=== PATIENT | male | born 1980 | race Caucasian/White ===

== ENCOUNTER 2018-07-07 13:34 | Outpatient (REF) | payer BC, SELFPAY | END 2018-07-07 13:54 | LOC: NCHCN 13:34 | PROVIDERS: PCP Family Medicine; Visit Provider Specialist/Technologist Athletic Trainer | DX: J02.9 Acute pharyngitis, unspecified (principal) | CPT/HCPCS: 87070 ==

== ENCOUNTER 2018-12-15 22:01 | Outpatient (REF) | payer BC, SELFPAY ==
[2018-12-15 22:02] LABS: HCT 40.3 % (40.0-50.0); HGB 14.2 g/dL (13.5-17.5); Mean Corp. HGB Concentration 35.2 g/dL (32.0-36.0); Mean Corpuscular Hemoglobin 32.2 pg (27.0-33.0); Mean Corpuscular Volume 91.4 fL (80-95); Mean Platelet Volume 11.2 fL (8.0-11.0); Platelet Count 126 x1000/uL (130-400); RBC 4.41 m/cumm (4.50-6.00); RBC Distribution Width 12.8 % (11.8-14.1); White Blood Cell Count 3.77 k/cumm (4.4-10.8)
[2018-12-15 22:40] LABS: Absolute Neutrophil Count 2.11 k/cumm (1.2-6.7)
[2018-12-15 22:41] LABS: Absolute Basophil Count 0.04 k/cumm (0.0-0.2); Absolute Eosinophil Count 0.11 k/cumm (0.0-0.7); Absolute Lymphocyte Count 0.94 k/cumm (1.2-3.4); Absolute Monocyte Count 0.53 k/cumm (0.11-0.7); Atypical Lymphocytes % 12; Diff Comment Manual Differential; RBC Morphology Normal
[2018-12-17 11:33] LABS: Lyme Ab w Rflx to Lyme Confirm Negative
[2018-12-18 16:47] LABS: Anaplasma phagocytophilum Negative (Negative); B. miyamotoi PCR Negative (Negative); Babesia divergens/MO-1 Negative (Negative); Babesia duncani Negative (Negative); Babesia microti Negative (Negative); Ehrlichia chaffeensis Negative (Negative); Ehrlichia ewingii/canis Negative (Negative); Ehrlichia muris eauclairensis Negative (Negative)
== END 2018-12-15 22:21 ==
LOC: NCHCN 22:01
PROVIDERS: PCP Family Medicine; Visit Provider Physician Assistant Medical
DX: R50.9 Fever, unspecified (principal)
CPT/HCPCS: 87798; 85025; 86618

== ENCOUNTER 2018-12-29 21:27 | Outpatient (REF) | payer BC, SELFPAY ==
[2018-12-29 21:43] LABS: Abs Immature Grans 0.06 k/cumm (0.0-0.09); Absolute Basophil Count 0.03 k/cumm (0.0-0.2); Absolute Eosinophil Count 0.07 k/cumm (0.0-0.7); Absolute Lymphocyte Count 3.15 k/cumm (1.2-3.4); Absolute Monocyte Count 0.73 k/cumm (0.11-0.7); Basophils % 0.5; Eosinophils % 1.2; HCT 37.8 % (40.0-50.0); HGB 13.4 g/dL (13.5-17.5); Immature Grans % 1.1; Lymphocytes % 55.9; Mean Corp. HGB Concentration 35.4 g/dL (32.0-36.0); Mean Corpuscular Hemoglobin 34.3 pg (27.0-33.0); Mean Corpuscular Volume 96.7 fL (80-95); Mean Platelet Volume 10.7 fL (8.0-11.0); Monocytes % 12.9; Neutrophils % 28.4; Platelet Count 238 x1000/uL (130-400); RBC 3.91 m/cumm (4.50-6.00); RBC Distribution Width 13.7 % (11.8-14.1); White Blood Cell Count 5.64 k/cumm (4.4-10.8)
== END 2018-12-29 21:47 ==
LOC: NCHCN 21:27
PROVIDERS: PCP Family Medicine; Visit Provider Physician Assistant Medical
DX: R50.9 Fever, unspecified (principal)
CPT/HCPCS: 85025

== ENCOUNTER 2021-03-23 03:42 | Outpatient (CLI) | payer BC, SELFPAY ==
[2021-03-23 12:56] LABS: Abs Immature Grans 0.13 10^3/uL (0.0-0.06); Absolute Basophil Count 0.05 10^3/uL (0.0-0.2); Absolute Eosinophil Count 0.34 10^3/uL (0.0-0.7); Absolute Lymphocyte Count 2.24 10^3/uL (1.2-3.4); Absolute Monocyte Count 0.43 10^3/uL (0.1-0.8); Absolute Neutrophil Count 4.32 10^3/uL (1.2-6.7); Basophils % 0.7; Eosinophils % 4.5; HCT 43.4 % (40.0-50.0); Immature Grans % 1.7; Lymphocytes % 29.8; MCHC 34.6 % (32.0-36.0); MCV 92.5 fL (80-95); MPV 9.5 fL (8.0-11.0); Monocytes % 5.7; Neutrophils % 57.6; Nucleated RBC 0 %; Platelet Count 212 10^3/uL (130-400); RBC 4.69 10^6/uL (4.36-5.78); RDW 12.5 % (11.8-14.1); RDW-SD 42.1 fL; WBC 7.51 10^3/uL (4.4-10.8)
[2021-03-23 13:15] LABS: Hemoglobin A1C 5.2 % (<5.7)
[2021-03-23 15:14] LABS: Calculated LDL 257 mg/dL (<100); Cholesterol 309 mg/dL (<200); HDL Cholesterol 32 mg/dL (40-60); Triglyceride 100 mg/dL (<150)
== END 2021-03-23 03:43 | disposition home or self-care (01) ==
PROVIDERS: PCP Family Medicine; Visit Provider Physician Assistant Medical
DX: E78.5 Hyperlipidemia, unspecified (principal); R03.0 Elevated blood-pressure reading, without diagnosis of hypertension
CPT/HCPCS: 36415; 80061; 83036; 85025

== ENCOUNTER 2021-03-27 15:27 | Outpatient (REF) | payer BC, SELFPAY ==
[2021-03-27 20:07] LABS: ALT 55 U/L (16-63); AST 25 U/L (15-37); Albumin 4.1 g/dL (3.4-5.0); Alkaline Phosphatase 48 U/L (46-116); Anion Gap 8.1 mmol/L (3-11); BUN 13 mg/dL (7-18); Bilirubin, Total 0.9 mg/dL (0.2-1.0); CO2 26.9 mmol/L (21.0-32.0); CREATININE 0.9 mg/dL (0.70-1.30); Calcium 8.9 mg/dL (8.5-10.1); Chloride 105 mmol/L (98-107); Glucose 90 mg/dL (74-106); Sodium 140 mmol/L (136-145); Total Protein 7.5 g/dL (6.4-8.2)
== END 2021-03-27 15:28 | disposition home or self-care (01) ==
LOC: NCHCN 15:27
PROVIDERS: PCP Family Medicine; Visit Provider Physician Assistant Medical
DX: R03.0 Elevated blood-pressure reading, without diagnosis of hypertension (principal)
CPT/HCPCS: 80053

== ENCOUNTER 2021-06-28 03:10 | Outpatient (CLI) | payer BC, SELFPAY ==
[2021-06-28 09:24] LABS: ALT 37 U/L (16-63); AST 26 U/L (15-37); Albumin 4.2 g/dL (3.4-5.0); Alkaline Phosphatase 47 U/L (46-116); Anion Gap 5.3 mmol/L (3-11); BUN 13 mg/dL (7-18); Bilirubin, Total 1.2 mg/dL (0.2-1.0); CO2 28.7 mmol/L (21.0-32.0); CREATININE 0.8 mg/dL (0.70-1.30); Calcium 9.1 mg/dL (8.5-10.1); Chloride 107 mmol/L (98-107); Glucose 105 mg/dL (74-106); Potassium 4.4 mmol/L (3.5-5.1); Sodium 141 mmol/L (136-145); Total Protein 7.4 g/dL (6.4-8.2)
[2021-06-29 14:53] LABS: Calculated LDL 137 mg/dL (<100); Cholesterol 178 mg/dL (<200); HDL Cholesterol 34 mg/dL (40-60); Triglyceride 38 mg/dL (<150)
== END 2021-06-28 03:11 | disposition home or self-care (01) ==
LOC: LBO 03:10
PROVIDERS: PCP Family Medicine; Visit Provider Physician Assistant Medical
DX: E78.5 Hyperlipidemia, unspecified (principal)
CPT/HCPCS: 36415; 80053; 80061

== ENCOUNTER 2021-10-06 02:26 | Outpatient (CLI) | payer BC, SELFPAY ==
[2021-10-06 13:26] LABS: ALT 45 U/L (16-63); AST 38 U/L (15-37); Albumin 4.1 g/dL (3.4-5.0); Alkaline Phosphatase 42 U/L (46-116); Anion Gap 7.9 mmol/L (3-11); BUN 15 mg/dL (7-18); Bilirubin, Total 1.2 mg/dL (0.2-1.0); CO2 28.1 mmol/L (21.0-32.0); CREATININE 0.9 mg/dL (0.70-1.30); Calculated LDL 135 mg/dL (<100); Chloride 105 mmol/L (98-107); Cholesterol 184 mg/dL (<200); Glucose 98 mg/dL (74-106); HDL Cholesterol 40 mg/dL (40-60); Sodium 141 mmol/L (136-145); Total Protein 7.6 g/dL (6.4-8.2); Triglyceride 46 mg/dL (<150)
== END 2021-10-06 02:27 | disposition home or self-care (01) ==
LOC: LBO 02:26
PROVIDERS: PCP Family Medicine; Visit Provider Physician Assistant Medical
DX: E78.5 Hyperlipidemia, unspecified (principal)
CPT/HCPCS: 36415; 80053; 80061

== ENCOUNTER 2022-04-17 12:52 | Outpatient (REF) | payer BC, SELFPAY ==
[2022-04-17 16:43] LABS: HGB 15.1 g/dL (13.5-17.5); MCH 32.2 pg (27.0-33.0); MCHC 35.1 % (32.0-36.0); MCV 92 fL (80-95); MPV 10.7 fL (8.0-11.0); Platelet Count 197 10^3/uL (130-400); RBC 4.69 10^6/uL (4.36-5.78); RDW 12.5 % (11.8-14.1); RDW-SD 41.3 fL; WBC 7.59 10^3/uL (4.4-10.8)
[2022-04-17 17:04] LABS: ALT 57 U/L (16-63); AST 50 U/L (15-37); Albumin 4.3 g/dL (3.4-5.0); Alkaline Phosphatase 47 U/L (46-116); Bilirubin, Direct 0.2 mg/dL (0.0-0.2); Bilirubin, Total 1.4 mg/dL (0.2-1.0)
[2022-04-17 17:10] LABS: Iron 69 ug/dL (65-175); Total Iron Binding Capacity 376 ug/dL (250-450); Transferrin Sat 18 % (20-55)
[2022-04-17 17:40] LABS: Ferritin 111 ng/mL (26-388)
[2022-04-18 11:13] LABS: Hepatitis A Antibody IgM Negative (Negative); Hepatitis B Core Antibody Negative (Negative); Hepatitis B surface Ag Negative (Negative); Hepatitis C Ab w Rflx HCV PCR Negative (Negative)
[2022-04-18 15:05] LABS: Ceruloplasmin 24.3 mg/dL
== END 2022-04-17 12:53 | disposition home or self-care (01) ==
LOC: NCHCN 12:52
PROVIDERS: PCP Family Medicine; Visit Provider Physician Assistant Medical
DX: R79.89 Other specified abnormal findings of blood chemistry (principal)
CPT/HCPCS: 80076; 82390; 85027; 86704; 86709; 86803; 87340; 82728; 83540; 83550

== ENCOUNTER 2024-04-07 16:54 | Outpatient (REF) | payer BC, SELFPAY ==
[2024-04-07 16:59] LABS: Absolute Basophil Count 0.05 10^3/uL (0.0-0.2); Absolute Eosinophil Count 0.19 10^3/uL (0.0-0.7); Absolute Lymphocyte Count 1.81 10^3/uL (1.2-3.4); Absolute Monocyte Count 0.49 10^3/uL (0.1-0.8); Absolute Neutrophil Count 4.17 10^3/uL (1.2-6.7); Basophils % 0.7 %; Eosinophils % 2.8 %; HCT 43.7 % (40.0-50.0); HGB 15.3 g/dL (13.5-17.5); Immature Grans % 1.5 %; Lymphocytes % 26.6 %; MCH 32.1 pg (27.0-33.0); MCV 92 fL (80-95); MPV 10.3 fL (8.0-11.0); Monocytes % 7.2 %; Neutrophils % 61.2 %; Platelet Count 185 10^3/uL (130-400); RBC 4.77 10^6/uL (4.36-5.78); RDW 12.4 % (11.8-14.1); RDW-SD 41.1 fL; WBC 6.81 10^3/uL (4.4-10.8)
[2024-04-07 17:09] LABS: ALT 47 U/L (16-63); AST 44 U/L (15-37); Albumin 4.3 g/dL (3.4-5.0); Alkaline Phosphatase 51 U/L (46-116); Anion Gap 9.1 mmol/L (3-11); BUN 19 mg/dL (7-18); Bilirubin, Total 1.36 mg/dL (0.2-1.0); CO2 25.9 mmol/L (21.0-32.0); Calcium 9.4 mg/dL (8.5-10.1); Calculated LDL 131 mg/dL (<100); Chloride 107 mmol/L (98-107); Cholesterol 181 mg/dL (<200); Estimated GFR 96.97 (mL/min/1.73m2); Glucose 108 mg/dL (74-106); HDL Cholesterol 39 mg/dL (40-60); Potassium 4.4 mmol/L (3.5-5.1); Sodium 142 mmol/L (136-145); Triglyceride 58 mg/dL (<150)
[2024-04-07 17:20] LABS: Hemoglobin A1C 5.2 % (<5.7)
== END 2024-04-07 16:55 | disposition home or self-care (01) ==
LOC: NCHCN 16:54
PROVIDERS: PCP Family Medicine; Visit Provider Physician Assistant Medical
DX: E78.5 Hyperlipidemia, unspecified (principal); K76.0 Fatty (change of) liver, not elsewhere classified; E66.9 Obesity, unspecified
CPT/HCPCS: 80053; 80061; 83036; 85025

== ENCOUNTER 2025-03-08 13:28 | Outpatient (REF) | payer BC, SELFPAY ==
[2025-03-08 16:10] LABS: HCT 42.3 % (40.0-50.0); HGB 14.7 g/dL (13.5-17.5); MCH 31.7 pg (27.0-33.0); MCHC 34.8 % (32.0-36.0); MCV 91 fL (80-95); MPV 10.3 fL (8.0-11.0); Platelet Count 194 10^3/uL (130-400); RBC 4.63 10^6/uL (4.36-5.78); RDW 12.2 % (11.8-14.1); RDW-SD 40.3 fL; WBC 10.03 10^3/uL (4.4-10.8)
[2025-03-08 16:38] LABS: ALT 43 U/L (10-49); AST 39 U/L (<34); Albumin 4.4 g/dL (3.2-5.0); Alkaline Phosphatase 47 U/L (46-116); Anion Gap 9 mmol/L (3-11); BUN 15 mg/dL (9-23); Bilirubin, Total 1.30 mg/dL (0.2-1.2); CO2 27.0 mmol/L (20.0-31.0); Calcium 9.3 mg/dL (8.3-10.6); Chloride 106 mmol/L (98-107); Cholesterol 171 mg/dL (<200); Glucose 113 mg/dL (74-106); HDL Cholesterol 38 mg/dL (>40); Potassium 4.5 mmol/L (3.5-5.1); Sodium 142 mmol/L (136-145); Total Protein 7.0 g/dL (5.7-8.2)
== END 2025-03-08 13:29 | disposition home or self-care (01) ==
LOC: NCHCN 13:28
PROVIDERS: PCP Family Medicine; Visit Provider Physician Assistant Medical
DX: K76.0 Fatty (change of) liver, not elsewhere classified (principal); E78.5 Hyperlipidemia, unspecified
CPT/HCPCS: 80053; 80061; 85027